=== PATIENT | female | born 1970 | race Caucasian/White ===

== ENCOUNTER 2021-04-12 10:13 | Emergency (ER) | payer BC ==
[~2021-04-12] VITALS: Ht 172.7 cm; Wt 76.2 kg
[2021-04-12 10:15] VITALS: BP_SYST 136
--- NOTE | 2021-04-12 10:15 | NUR ---
Patient to ER bed 5 for evaluation. Side rails up. Assumed care.
--- NOTE | 2021-04-12 10:29 | NUR ---
Pt. came in with c/o heavy vaginal bleeding since early am yesterday, states has been bleeding through tampon and pad about every 1 to 1 1/2 hour, pt. had mirena IUD removed last month and this is her first period since., pt. states she called her OBGYN, Dr. Connell who advised her to come in for evaluation.
--- NOTE | 2021-04-12 10:40 | NUR ---
KELLI Toth at bedside examining patient.
[2021-04-12 11:03] LABS: BASOPHILS % (AUTO) 0.5 % (0.0-2.0); EOSINOPHILS # (AUTO) 0.1 K/uL (0.0-0.4); EOSINOPHILS % (AUTO) 3.4 % (0.0-4.0); HEMATOCRIT 39.6 % (36-48); HEMOGLOBIN 13.5 g/dL (12.0-16.0); LYMPHOCYTES # (AUTO) 0.7 K/uL (1.0-5.5); LYMPHOCYTES % (AUTO) 18.1 % (20.5-51.5); MEAN CORPUSCULAR HEMOGLOBIN 33 pg (27-31); MEAN CORPUSCULAR HGB CONC 34 % (32-36); MEAN CORPUSCULAR VOLUME 97 fL (79.0-98.0); MONOCYTES # (AUTO) 0.2 K/uL (0.0-1.0); MONOCYTES % (AUTO) 6.6 % (1.7-9.3); NEUTROPHILS # (AUTO) 2.6 K/uL (1.8-7.7); NEUTROPHILS % (AUTO) 71.4 % (40.0-70.0); PLATELET COUNT (AUTO) 165 K/uL (130-430); RED BLOOD CELL COUNT(AUTO) 4.09 MIL/uL (4.2-6.2); WHITE BLOOD COUNT (AUTO) 3.6 K/uL (4.8-10.8)
[2021-04-12] MEDS ORDERED: MEDR10TA10 PO (11:03)
[2021-04-12 11:16] LABS: ANION GAP 6 (5-15); CHLORIDE 104 mmol/L (98-107); GFR AFRICAN AMERICAN 113 mL/min (>90); GLUCOSE 101 mg/dL (70-99); POTASSIUM 3.9 mmol/L (3.5-5.1); SODIUM SERUM 139 mmol/L (136-145); UREA NITROGEN, BLOOD 7 mg/dL (8-21)
--- NOTE | 2021-04-12 11:18 | NUR ---
Pt. returned from radiology
[2021-04-12 11:29] LABS: INR 0.9 (0.8-1.2); PROTHROMBIN TIME 10.1 SECS (9.5-12.5)
[2021-04-12 11:32] LABS: ALANINE AMINOTRANSFERASE 27 U/L (12-78); ALBUMIN 4.3 g/dL (3.4-4.8); ASPARTATE AMINOTRANSFERASE 21 U/L (10-37); BILIRUBIN,DIRECT < 0.1 mg/dL (0.0-0.3); HCG,QUANTITATIVE 0 mIU/ML (0-6); THYROID STIMULATING HORMONE 0.48 uIu/mL (0.36-3.74); TOTAL BILIRUBIN 0.3 mg/dL (0.0-1.0)
[2021-04-12 12:03] LABS: CLARITY/URINE CLEAR (CLEAR); COLOR,URINE YELLOW (YELLOW)
[2021-04-12 12:04] LABS: BILIRUBIN,URINE NEGATIVE (NEGATIVE); GLUCOSE,URINE NEGATIVE (NEGATIVE); KETONES,URINE NEGATIVE (NEGATIVE); PROTEIN URINE NEGATIVE (NEGATIVE)
[2021-04-12 12:05] LABS: BLOOD, URINE 2+ (NEGATIVE); LEUKOCYTE ESTERASE ,URINE NEGATIVE (NEGATIVE); NITRITE, URINE NEGATIVE (NEGATIVE); UROBILINOGEN,URINE 0.2 (0.2-1.0)
[2021-04-12 12:26] LABS: BACTERIA,URINE None Seen /HPF (None Seen); MUCUS,URINE 1+ /LPF (None Seen); WBC,URINE NONE SEEN /HPF (0-3)
--- NOTE | 2021-04-12 12:44 | NUR ---
Patient given written and verbal discharge instructions and verbalizes understanding. ER Dr. Bell discussed with patient the results and treatment provided. Patient in stable condition. ID arm band removed. Rx of Medroxyprogesterone given. Patient educated on pain management and to follow up with PMD. Pain Scale 0. Opportunity for questions provided and answered. Medication side effect fact sheet provided.
[2021-04-12 12:46] VITALS: BP_SYST 127
== END 2021-04-12 12:44 | disposition home or self-care (01) ==
LOC: SED 10:13
DX: N93.9 Abnormal uterine and vaginal bleeding, unspecified (principal); D25.9 Leiomyoma of uterus, unspecified; Z88.0 Allergy status to penicillin; Z88.2 Allergy status to sulfonamides
CPT/HCPCS: 36415; 76830-TC; 76857; 80048; 80076; 81000; 84443; 84702; 85025; 85610-TC; 99284